=== PATIENT | female | born 1940 ===

== ENCOUNTER 2021-06-14 14:52 | Emergency (ER) | payer OTHER, MEDICAID ==
[2021-06-14 15:14] VITALS: BP 106/62
--- NOTE | 2021-06-14 16:02 | XRay Report ---
CHEST 2 VIEWS INDICATION / CLINICAL INFORMATION: Chest Pain. COMPARISON: None available. FINDINGS: SUPPORT DEVICES: None. HEART / MEDIASTINUM: Upper mediastinal mass is widened. LUNGS / PLEURA: No significant pulmonary or pleural abnormality. No pneumothorax. ADDITIONAL FINDINGS: No significant additional findings. IMPRESSION: 1. Widening of the upper mediastinum, nonspecific but could be related to aortic aneurysm or acute ao rtic syndrome. No reference examinations for comparison. If clinically warranted, contrast enhanced C T of the chest could further evaluate. Signer Name: Gilles Bermudez MD Signed: 06/14/2021 3:57 PM Workstation Name: [id number]
--- NOTE | 2021-06-14 16:07 | Emergency Department Report ---
Blank Doc - Documentation Documentation: 80-year-old female brought by son for worsening dementia x7 months as well as acute thoracic spine pain. Denies any injuries or trauma. 1- This is a initial triage assessment/medical screening only. Full assessment and work-up will be completed once the patient is in proper hospital gown, ED bed and in a private room setting. This initial assessment/diagnostic orders/clinical plan/ treatment(s) is/are subject to change based on pt's health status, clinical progression and re-assessment by fellow clinical providers in the ED. Further treatment and workup at subsequent clinical providers discretion. Patient/guardians urged not to elope from ED as their condition may be serious if not clinically assessed and managed. 2-cardiac workup due to throacic spine pain
[2021-06-14 16:32] LABS: Basophils % (Auto) 0.5 % (0.0-1.8); Eosinophils % (Auto) 0.4 % (0.0-4.3); Hematocrit 32.8 % (30.3-42.9); Hemoglobin 10.3 gm/dl (10.1-14.3); Lymphocytes # (Auto) 1.4 K/mm3 (1.2-5.4); Lymphocytes % (Auto) 34.9 % (13.4-35.0); Mean Corpuscular HGB Conc 31 % (30-34); Mean Corpuscular Volume 80 fl (79-97); Monocytes # (Auto) 0.3 K/mm3 (0.0-0.8); Monocytes % (Auto) 8.7 % (0.0-7.3); Platelet Count 218 K/mm3 (140-440); Red Blood Count 4.08 M/mm3 (3.65-5.03); Red Cell Distribution Width 14.8 % (13.2-15.2)
[2021-06-14 16:42] LABS: Alanine Aminotransferase 12 units/L (7-56); BUN/Creatinine Ratio 21; Blood Urea Nitrogen 19 mg/dL (7-17); Calcium 9.4 mg/dL (8.4-10.2); Hemolysis Index 2
[2021-06-14 16:45] LABS: INR 0.93 (0.87-1.13); Partial Thromboplastin Time 24.2 Sec. (24.2-36.6)
--- NOTE | 2021-06-15 17:43 | Electrocardiograph Report ---
[facility] Test Date: 2021-06-14 Test Time: 15:19:01 Pat Name: MARY RODRÍGUEZ Department: Room: Gender: F Cnc Operator Programmer: MUKESH : 1940 Requested By: LINDA MARAVILLA Order Number: [id number] Reading MD: Kaylie Lpoez Measurements Intervals [place] Rate: 67 P: 25 UT: 147 QRS: 1 QRSD: 69 T: 24 QT: 398 QTc: 420 Interpretive Statements Sinus rhythm Low voltage, precordial leads No previous ECG available for comparison Electronically Signed On 06-15-2021 17:43:43 EDT by Kaylie Lopez
== END 2021-06-15 00:05 | disposition left against medical advice (07) ==
LOC: ED 14:52
DX: M54.9 Dorsalgia, unspecified (principal); Z53.21 Procedure and treatment not carried out due to patient leaving prior to being seen by health care provider
CPT/HCPCS: 36415; 71046; 80053; 84484; 85025; 85610; 85730; 93005

== ENCOUNTER 2021-06-22 11:21 | Emergency (ER) | payer MEDICARE, MEDICAID ==
[2021-06-22 14:27] VITALS: BP 162/90
[2021-06-22 15:39] LABS: Basophils % (Auto) 0.4 % (0.0-1.8); Eosinophils % (Auto) 0.2 % (0.0-4.3); Hematocrit 34.8 % (30.3-42.9); Lymphocytes # (Auto) 1.9 K/mm3 (1.2-5.4); Lymphocytes % (Auto) 36.6 % (13.4-35.0); Mean Corpuscular HGB Conc 32 % (30-34); Mean Corpuscular Volume 81 fl (79-97); Monocytes # (Auto) 0.4 K/mm3 (0.0-0.8); Monocytes % (Auto) 7.2 % (0.0-7.3); Platelet Count 237 K/mm3 (140-440); Red Blood Count 4.32 M/mm3 (3.65-5.03); Red Cell Distribution Width 14.9 % (13.2-15.2)
[2021-06-22 16:00] LABS: Alanine Aminotransferase 15 units/L (7-56); Albumin 4.2 g/dL (3.9-5); BUN/Creatinine Ratio 19; Blood Urea Nitrogen 17 mg/dL (7-17); Calcium 9.3 mg/dL (8.4-10.2); Hemolysis Index 3
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
--- NOTE | 2021-06-22 18:41 | Cat Scan Report ---
CT head/brain wo con INDICATION: behavior changes. TECHNIQUE: All CT scans at this location are performed using CT dose reduction for ALARA by means of automated e xposure control. COMPARISON: None available. FINDINGS: There is no evidence of hemorrhage, hydrocephalus, brain edema, or mass effect/mass lesion. There is overall normal brain formation and brain volume for the patient's age. Ventricular and cisternal/sulc al size is normal for age. The included paranasal sinuses and mastoid air cells are clear. The orbits appear unremarkable. IMPRESSION: 1. No acute intracranial abnormality. Signer Name: Josep Freeman MD Signed: 06/22/2021 6:36 PM Workstation Name: [id number]
== END 2021-06-22 22:08 ==
LOC: ED 11:21
DX: F41.8 Other specified anxiety disorders (principal); Z53.21 Procedure and treatment not carried out due to patient leaving prior to being seen by health care provider
CPT/HCPCS: 36415; 70450; 80053; 80320; 82550; 83735; 84443; 84484; 85025; G0480